=== PATIENT | male | born 1985 | race Caucasian/White ===

== ENCOUNTER 2016-12-06 21:16 | Emergency (ER) | payer OTHER ==
[2016-12-06 22:00] VITALS: BP 137/71; PULSE 105; RESP 18; TEMP 100.6; O2SAT 96
[2016-12-06] MEDS ORDERED: ACETAMINOPHEN 325 MG TAB PO ONE (22:00)
[2016-12-06] MEDS ORDERED: IBUPROFEN 800 MG TAB PO ONE (22:00)
[2016-12-06] MEDS ORDERED: IBUPROFEN 600 MG TAB PO ONE (22:05)
--- NOTE | 2016-12-06 22:33 | UCPHY ---
H & P Time Seen by Provider: 12/06/16 21:52 Patient Type: New HPI/ROS: This patient complains of a 3 day history of fevers, chills, nasal congestion mild dry cough and sore throat. He also reports myalgias. He has associated fatigue. Is mild frontal headache similar to previous headaches. He has fevers improved with [id number] antipyretics. No other exacerbating or alleviating factors. His girlfriend with whom he lives tested positive for influenza B with similar symptoms. ROS: No other constitutional symptoms. HEENT: No ear pain. No sinus pain. Pulmonary: No pleuritic pain or shortness of breath cardiovascular: No lightheadedness GI: No nausea. He does have loose stools today. No abdominal pain. : No symptoms. 7 point ROS is otherwise negative. Smoking Status: Current every day smoker Physical Exam: Physical Exam Vital signs are normal except for mild fever of 100.6. General: No acute distress HEENT: Nose: Clear discharge bilaterally. No sinus tenderness to percussion. Ears: External canals and tympanic membranes are clear with no erythema or abnormal findings bilaterally. Oropharynx: No erythema or exudates. No dysphonia. No drooling or stridor. Eyes: Pupils equal and react to light. Extraocular motions are intact. Lungs: Clear to auscultation bilaterally with no rales, rhonchi or wheeze. No respiratory distress. Cardiac: Regular rate and rhythm with no murmur gallop or rub Skin: No rash or pallor. Neuro: Alert with no focal deficits noted. Initial differential diagnosis: Influenza, URI with cough, doubt bronchitis Constitutional: Initial Vital Signs Temperature (C) 38.1 C 12/06/16 21:57 Heart Rate 105 H 12/06/16 21:57 Respiratory Rate 18 12/06/16 21:57 Blood Pressure 137/71 H 12/06/16 21:57 O2 Sat (%) 96 12/06/16 21:57 O2 Delivery Mode Room Air Allergies/Adverse Reactions: No Known Allergies Allergy (Unverified 12/06/16 21:57) Home Medications: Medication Instructions Recorded NK [No Known Home Meds] 12/06/16 MDM/Departure - MDM Diagnostics: Influenza swab is negative Medications Given: Discontinued Medications Acetaminophen (Tylenol) 650 mg PO EDNOW ONE Stop: 12/06/16 22:01 Last Admin: 12/06/16 22:09 Dose: 650 mg Ibuprofen (Motrin) 800 mg PO EDNOW ONE Stop: 12/06/16 22:01 Last Admin: 12/06/16 22:09 Dose: 800 mg ED Course/Re-evaluation: Although this patient has influenza swab is negative think that he has influenza given exposure to his girlfriend who tested positive tonight for influenza B and has symptoms classic for influenza without other findings that would suggest lower respiratory infection or other complications. - Depart Disposition: Home, Routine, Self-Care Clinical Impression: Influenza Condition: Good Instructions: Influenza (ED) Additional Instructions: Diagnosis: Influenza Plan: Drink plenty fluids Ibuprofen for fevers or aches. No work until fever has resolved for 24 hours more Return for any significant worsening despite treatment plan. Stand Alone Forms: Work Excuse Referrals: NONE *PRIMARY CARE P,. [Primary Care Provider] - As per Instructions - PQRS PQRS Measurement: NA
== END 2016-12-06 22:45 | disposition home or self-care (01) ==
LOC: CED 21:16
DX: J10.1 Influenza due to other identified influenza virus with other respiratory manifestations (principal); F17.200 Nicotine dependence, unspecified, uncomplicated
CPT/HCPCS: 87400-PO; 99203-PO; G0463-PO